=== PATIENT | female | born 1970 | race Caucasian/White ===

== ENCOUNTER 2022-03-26 20:38 | Inpatient (IN) | payer OTHER ==
[~2022-03-26] VITALS: Ht 167.6 cm; Wt 51.0 kg
--- NOTE | 2022-03-26 20:43 | NUR ---
PT [facility]. TAKEN TO BED 9
[2022-03-26 20:44] VITALS: BP 142/76
--- NOTE | 2022-03-26 20:50 | NUR ---
51 y/o female biba from home, c/o chest pain for 6 days with diarrhea, pt describes pain as pressure, 0/10 at this time. denies n&v, sob, cough, fever, chills. en route, pt was given 0.4mg nitro x2 po and 324 aspirin po. iv started 18g on left hand. pt a&ox4, ambulates with assist, indonesian speaking. gcs 15. pt states her pain increased with palpation of chest, denies any pain at this time. lungs clear bl. pt states she had one episode of diarrhea today, abd sounds x4 normoactive, flat/soft/nontender. pmh: cardiac bypass, dm2, seizure, htn, renal failure (dialysis sunday, sunday, sunday) aidan
--- NOTE | 2022-03-26 20:54 | NUR ---
Dr. Gomes examining patient.
[2022-03-26] MEDS ORDERED: LORazepam 0.5 MG TAB PO ONE (21:00)
--- NOTE | 2022-03-26 21:29 | NUR ---
X-Ray at bedside.
--- NOTE | 2022-03-26 21:29 | NUR ---
pt notified me at this time she has left upper arm dialysis port that is not functioning, but the one on her right upper arm fucntions.
[2022-03-26 21:40] LABS: BASOPHILS % (AUTO) 1.1 % (0.0-2.0); EOSINOPHILS # (AUTO) 0.1 K/uL (0-0.4); EOSINOPHILS % (AUTO) 3.2 % (0.0-4.0); HEMATOCRIT 32.4 % (36-48); HEMOGLOBIN 10.7 g/dL (12.0-16.0); LYMPHOCYTES # (AUTO) 0.7 K/uL (2.5-16.5); MEAN CORPUSCULAR HEMOGLOBIN 31 pg (27-31); MEAN CORPUSCULAR HGB CONC 33 g/dL (33-37); MEAN CORPUSCULAR VOLUME 92.1 fL (80-94); MONOCYTES # (AUTO) 0.6 K/uL (0.8-1.0); NEUTROPHILS % (AUTO) 65.7 % (42.2-75.2); PLATELET COUNT (AUTO) 138 K/uL (140-450); RED BLOOD CELL COUNT(AUTO) 3.52 MIL/uL (4.20-5.40); RED CELL DISTRIBUTION WIDTH 13.6 % (11.6-13.7); WHITE BLOOD COUNT (AUTO) 4.6 K/uL (4.8-10.8)
[2022-03-26 21:57] LABS: ALBUMIN 3.7 g/dL (3.4-5.0); ANION GAP 17.4 (8-16); CARBON DIOXIDE 27.3 mmol/L (21-32); POTASSIUM 4.7 mmol/L (3.5-5.1); TOTAL BILIRUBIN 0.4 mg/dL (0.0-1.0)
--- NOTE | 2022-03-26 22:21 | NUR ---
casi swabbed at this time
[2022-03-26] MEDS ORDERED: MORPHINE SULFATE 2 MG/ML SYR IVP STA (22:29)
[2022-03-26] MEDS ORDERED: ATOR10TA PO (22:44)
[2022-03-26] MEDS ORDERED: INSU100S10 SC (22:44)
[2022-03-26] MEDS ORDERED: ISOS20TA13 PO (22:44)
[2022-03-26] MEDS ORDERED: CLON0.2T16 PO (22:44)
[2022-03-26] MEDS ORDERED: PARO-42 PO (22:44)
[2022-03-26] MEDS ORDERED: OFLO5SOL27 OT (22:44)
[2022-03-26] MEDS ORDERED: TRAZ-343 PO (22:44)
[2022-03-26] MEDS ORDERED: HYDR-3233 PO (22:44)
[2022-03-26] MEDS ORDERED: CARV25TA PO (22:44)
[2022-03-26] MEDS ORDERED: LEVE500T9 PO (22:44)
[2022-03-26] MEDS ORDERED: SEN30 PO (22:44)
[2022-03-26] MEDS ORDERED: AMLO10TA PO (22:44)
[2022-03-26] MEDS ORDERED: HUMSLIDE (22:44)
--- NOTE | 2022-03-26 22:59 | NUR ---
Patient will be admitted to care of imer izaguirre. Admitted to telemetry. Will go to room 117. Belongings list completed. Report to harmeet roman.
[2022-03-26] MEDS ORDERED: guaiFENesin DM 200/20 MG-10 ML 10 ML UDC PO PRN (23:20)
[2022-03-26] MEDS ORDERED: ZOLPIDEM 5 MG TAB PO PRN (23:20)
[2022-03-26] MEDS ORDERED: ACETAMINOPHEN 325 MG TAB PO PRN (23:20)
[2022-03-26] MEDS ORDERED: HYDROcodone/APAP 7.5/325 MG 1 TAB PO PRN (23:20)
[2022-03-26] MEDS ORDERED: DOCUSATE SODIUM 100 MG GELCAP PO PRN (23:20)
[2022-03-26] MEDS ORDERED: MORPHINE SULFATE 2 MG/ML SYR IVP PRN (23:20)
[2022-03-26] MEDS ORDERED: ONDANSETRON 4 MG/2 ML VIAL IM/IVP PRN (23:20)
[2022-03-26] MEDS ORDERED: POTASSIUM CHLORIDE 10 MEQ TABER PO PRN (23:20)
--- NOTE | 2022-03-26 23:20 | NUR ---
PT IS ADMITTED TO [facility] FROM ER THRU [facility] WITH DIAGNOSIS OF CHEST PAIN AND INCREASE TROPONIN LEVEL. PT IS AMBULATORY WITH 1 ASSIST, AOX4, CAN VERBALIZE NEEDS AND ABLE FOLLOW COMMANDS. PT IS ON ROOM AIR AND ON CARDIAC DIET. PT SALINE LOCK ON LEFT HAND GAUGE 18 PT SKIN IS INTACT. ALL SAFETY MEASURES IMPLEMENTED. BED WHEELS ON LOCKED, BED IN LOW POSITION AND CALL LIGHT WITHIN REACH.
[2022-03-26] MEDS ORDERED: hePARIN / DEXT 5% PREMIX 250 ML IV SCH (23:25)
[2022-03-26] MEDS ORDERED: NITROGLYCERIN 0.4 MG TAB SL PRN (23:25)
[2022-03-26] MEDS ORDERED: HEPARIN PER PHARMACY MC PRN (23:25)
[2022-03-26] MEDS ORDERED: DEXTROSE 50% 50 ML SYR IVP PRN (23:30)
[2022-03-26 23:52] LABS: PROTHROMBIN TIME 11.2 secs (10.8-13.4)
--- NOTE | 2022-03-27 00:37 | NUR ---
PT WAS GIVEN SLEEPING MEDICATION PER MD ORDER AND PER PT REQUEST. PT TOLERATED IT WELL. ALL SAFETY MEASURES IMPLEMENTED. BED WHEELS ON LOCKED, BED IN LOW POSITION AND CALL LIGHT WITHIN REACH.
--- NOTE | 2022-03-27 00:41 | NUR ---
NOTIFIED DR. BLOOM REGARDING PT TROPONIN LEVEL OF 122. WAITING FOR DOCTOR'S REPLY.
[2022-03-27 00:44] LABS: CHOL/HDL RATIO 1.5 (1-4.5); FREE T4 (FREE THYROXINE) 0.75 ng/dL (0.76-1.46); MAGNESIUM 2.5 mg/dL (1.8-2.4); PHOSPHORUS 4.4 mg/dL (2.5-4.9); THYROID STIMULATING HORMONE 1.21 uIU/mL (0.34-3.74)
--- NOTE | 2022-03-27 00:45 | NUR ---
VITAL SIGNS TAKEN. VITAL SIGNS STABLE. HAD TO CALL LAB SINCE THEY DID NOT DRAW BLOOD FOR PTT. LAB SAID SHES BEEN BUSY IN ER AND THERE IS ONLY ONE OF HER TONIGHT. SHE WILL COME DRAW BLOOD FOR THE PT NOW. Addendum: 03/28/22 at 0019 by Alex Edward RN WRONG TIME FOR 2344
--- NOTE | 2022-03-27 02:00 | NUR ---
PT WAS GIVEN SANDWICH AND JELLO PER PT REQUEST. ALL SAFETY MEASURES IMPLEMENTED. BED IN LOW POSITION, BED WHEELS ON LOCKED AND CALL LIGHT WITHIN REACH.
--- NOTE | 2022-03-27 03:04 | NUR ---
DR. BLOOM REPLIED AND ASKED TO START HEPARIN. ORDER WAS MADE AND CARRIED OUT.
--- NOTE | 2022-03-27 03:19 | NUR ---
HEPARIN DRIP WAS GIVEN TO PT RUNNING AT 6ML/HR. PT TOLERATED IT WELL. ALL SAFETY MEASURES IMPLEMENTED. BED WHEELS ON LOCKED, BED IN LOW POSITION AND CALL LIGHT WITHIN REACH.
[2022-03-27] MEDS: hePARIN / DEXT 5% PREMIX 250 ML IV SCH ×2 (03:20→11:15)
[2022-03-27 04:00] VITALS: BP 147/56
--- NOTE | 2022-03-27 04:00 | NUR ---
PT WAS GIVEN HOT TOWEL COMPRESS FOR LEFT SHOULDER PAIN PER PT REQUESTED. ALL SAFETY MEASURES IMPLEMENTED. BED IN LOW POSITION, BED WHEELS ON LOCKED AND CALL LIGHT WITHIN REACH. Addendum: 03/27/22 at 0535 by Vero Villatoro RN WRONG PT.
[2022-03-27] MEDS: INSULIN LISPRO SLIDING SCALE 100 UNITS/ML VIAL SUBQ PRN ×3 (06:32→21:09)
[2022-03-27] MEDS: BLOOD GLUCOSE MONITORING 1 DEV DEV FS SCH ×4 (06:36→21:11)
--- NOTE | 2022-03-27 06:36 | NUR ---
PT BLOOD GLUCOSE IS 175. HUMALOG INSULIN 2 UNITS WAS GIVEN AT LEFT SIDE ABD. ALL SAFETY MEASURES IMPLEMENTED. BED IN LOW POSITION, BED WHEELS ON LOCKED AND CALL LIGHT WITHIN REACH.
[2022-03-27 06:59] LABS: BASOPHILS # (AUTO) 0.1 K/uL (0.00-0.22); BASOPHILS % (AUTO) 0.9 % (0.0-2.0); EOSINOPHILS # (AUTO) 0.2 K/uL (0-0.4); EOSINOPHILS % (AUTO) 3.1 % (0.0-4.0); HEMATOCRIT 34.4 % (36-48); HEMOGLOBIN 11.3 g/dL (12.0-16.0); LYMPHOCYTES % (AUTO) 18.1 % (20.5-51.1); MEAN CORPUSCULAR HEMOGLOBIN 31 pg (27-31); MEAN CORPUSCULAR HGB CONC 33 g/dL (33-37); MEAN CORPUSCULAR VOLUME 92.7 fL (80-94); MONOCYTES # (AUTO) 0.5 K/uL (0.8-1.0); MONOCYTES % (AUTO) 9.5 % (1.7-9.3); NEUTROPHILS # (AUTO) 3.9 K/uL (1.8-7.7); NEUTROPHILS % (AUTO) 68.4 % (42.2-75.2); PLATELET COUNT (AUTO) 143 K/uL (140-450); RED BLOOD CELL COUNT(AUTO) 3.71 MIL/uL (4.20-5.40); RED CELL DISTRIBUTION WIDTH 13.8 % (11.6-13.7); WHITE BLOOD COUNT (AUTO) 5.6 K/uL (4.8-10.8)
[2022-03-27 07:06] LABS: ANION GAP 18.1 (8-16); CARBON DIOXIDE 26.8 mmol/L (21-32); POTASSIUM 4.9 mmol/L (3.5-5.1)
[2022-03-27 07:13] LABS: CREATININE 9.5 mg/dL (0.6-1.3)
--- NOTE | 2022-03-27 07:24 | NUR ---
PT IS STABLE. ENDORSED PT TO MORNING SHIFT NURSE FOR CONTINUITY OF CARE.
--- NOTE | 2022-03-27 07:26 | NUR ---
RECEIVED BEDSIDE REPORT FROM ATHLETE MARKETING AGENT NURSE, PT RESTING, NO DISTRESS NOTED, IV TO LFA 20G PATENT INTACT SL. PT ON ROOM AIR, NO SOB NOTED, AV SHUNT TO LEFT UPPER ARM NOT BEING USED, AND RIGHT UPPER ARM WITH BRUIT AND THRILL. INITIAL ASSESSMENT DONE, ALL SAFETY PRECAUTION MET, CALL LIGHT WITHIN REACH, WILL CONTINUE TO MONITOR.
--- NOTE | 2022-03-27 07:50 | NUR ---
PAGED DR BONNER FOR CRITICAL RESULT, AWAITING FOR CALL BACK.
--- NOTE | 2022-03-27 07:53 | NUR ---
SPOKE TO DR BONNER REGARDING CRITICAL BUN 86 CREAT 9.5, STATED UNDERSTANDING TO SEE PT.
[2022-03-27 08:00] VITALS: BP 157/58
--- NOTE | 2022-03-27 08:33 | NUR ---
PATIENT HAS BEEN SCREENED AND CATEGORIZED HIGH NUTRITION RISK. PATIENT WILL BE SEEN WITHIN 1-2 DAYS OF ADMISSION. 03/27/22-03/28/[address]
[2022-03-27] MEDS: ISOSORBIDE DINITRATE 20 MG TAB PO SCH ×2 (09:00→21:01)
[2022-03-27] MEDS: hydrALAZINE 10 MG TAB PO SCH ×3 (09:00→17:38)
[2022-03-27] MEDS ORDERED: NON-FORMULARY ITEM (Levetiracetam* (Keppra Xr*) 1 TAB) PO SCH (09:00)
[2022-03-27] MEDS: carvediloL 12.5 MG TAB PO SCH ×2 (09:00→21:01)
--- NOTE | 2022-03-27 09:00 | NUR ---
PT BP 157/58, DUE MEDICATION GIVEN, BP MEDICATIONS HYDRALAZINE, CARVEDILOL AND ISOSORBIDE HELD DUE TO PT IS GOING TO HAVE DIALYSIS. WILL CONTINUE TO MONITOR.
[2022-03-27] MEDS ORDERED: CRUSHER, PILL MC ONE (09:16)
[2022-03-27] MEDS: PANTOPRAZOLE 40 MG TABEC PO SCH (09:23)
[2022-03-27] MEDS: amLODIPine 5 MG TAB PO SCH (09:24)
[2022-03-27] MEDS: ATORVASTATIN 20 MG TAB PO SCH (09:25)
[2022-03-27] MEDS: ECOTRIN 81 MG TABEC PO SCH (09:25)
[2022-03-27] MEDS: PARoxetine 20 MG TAB PO SCH (09:25)
[2022-03-27] MEDS: CINACALCET 30 MG TAB PO SCH (09:25)
--- NOTE | 2022-03-27 11:15 | NUR ---
PTT 36.5, PER RX PROTOCOL TO INCREASE BY 100 UNITS/HR, TO 700 UNITS/HR, AND BOLUS HEPARIN 1500 UNITS. WILL CONTINUE WITH PROCOL. PTT WILL BE ORDERED FOR 171. Addendum: 03/27/22 at 1208 by Sandy Jimenez RN [id number]
[2022-03-27 11:56] VITALS: BP 168/53
--- NOTE | 2022-03-27 11:56 | NUR ---
PT BP 168/53, HYDRALAZINE DUE 1300GIVEN, WILL CONTINUE TO MONITOR.
--- NOTE | 2022-03-27 13:13 | NUR ---
PT AMBULATED WITH PT, TOLERATED WELL. WILL CONTINUE TO MONITOR.
--- NOTE | 2022-03-27 14:00 | NUR ---
RECHECKED BP 131/63. PT STABLE, NO DISTRESS NOTED, WILL CONTINUE TO MONITOR.
--- NOTE | 2022-03-27 15:00 | NUR ---
DIALYSIS STARTED, DIALYSIS NURSE AT BEDSIDE
[2022-03-27 16:00] VITALS: BP 135/51
[2022-03-27] MEDS ORDERED: traZODone 50 MG TAB PO SCH ×2 (17:00→21:00)
--- NOTE | 2022-03-27 17:11 | NUR ---
PT C/O CHEST PAIN, DIALYSIS STILL ON GOING AT THIS MOMENT, PER DIALYSIS NURSE HE WILL STOP DIALYSIS NOW, 2.1L OUTPUT, DR BONNER NOTIFIED. PT SBP 144/45, HR 68, CHEST PAIN 10/10, NITRO PRN GIVEN, MORPHINE PRN GIVEN, ADMINISTER 2LPM O2 VIA NC. WILL CONTINUE TO MONITOR.
--- NOTE | 2022-03-27 18:10 | NUR ---
SPOKE TO DR YANG WHO IS AT BEDSIDE REGARDING PT EPISODE OF CHEST PAIN, STATED UNDERSTANDING.
--- NOTE | 2022-03-27 18:31 | NUR ---
RECEIVED PHONE CALL FROM LAB, PTT 62.3, NO CHANGE PER PROTOCOL. WILL RECHECK PTT @ [phone].
--- NOTE | 2022-03-27 19:34 | NUR ---
ENDORSED PT TO FRIT MIXER AND BURNER NURSE FOR CONTINUOUS OF CARE. PT STABLE.
--- NOTE | 2022-03-27 19:40 | NUR ---
RECEIVED BEDSIDE REPORT FROM DAY SHIFT RN FOR CONTINUITY OF CARE. PT IS AWAKE. PT IS AAOX4 ON 2L NC. PT HAS LEFT HAND 18 GAUGE AND LEFT FOREARM 22 GAUGE. PT IS ON HEPARIN DRIP 700 UNITS/HR. PT HAS LEFT AV FISTULA NOT WORKING AND RIGHT AV FISTULA FOR HD. PLAN OF CARE DISCUSSED. WILL CONTINUE TO MONITOR THE PT.
[2022-03-27 20:00] VITALS: BP 159/74
--- NOTE | 2022-03-27 21:15 | NUR ---
SCHEDULE MEDS GIVEN. NO ADVERSE REACTION NOTED. WILL CONTINUE TO MONITOR THE PT.
--- NOTE | 2022-03-27 21:56 | NUR ---
PT COMPLAIN OF BODY ITCHINESS. MESSAGED DR. BLOOM AND HE ORDERED BENADRYL 25MG Q6H. GAVE TO PT. NO OTHER COMPLAINS. WILL CONTINUE TO MONITOR THE PT.
--- NOTE | 2022-03-27 23:45 | NUR ---
VITAL SIGNS TAKEN. VITAL SIGNS STABLE. HAD TO CALL LAB SINCE THEY DID NOT DRAW BLOOD FOR PTT. LAB SAID SHES BEEN BUSY IN ER AND THERE IS ONLY ONE OF HER TONIGHT. SHE WILL COME DRAW BLOOD FOR THE PT NOW.
[2022-03-28] VITALS (8 sets, daily range): BP systolic 118–157; BP diastolic 38–72
--- NOTE | 2022-03-28 | NUR ---
BP 109/58 , HR 58 - WILL INFORM BOBBA - I HOLD BP MECS , AND BETA ALYSSA MED .
--- NOTE | 2022-03-28 00:35 | NUR ---
LAB CALLED WITH PT PTT RESULTS OF 63. NO CHANGE FOR HEPARIN DRIP PER PHARMACY PROTOCOL. THIS IS 2ND THERAPEUTIC RESULT AND NEXT PTT DRAW WILL BE IN 24 HOURS AT 03/29 0030.
--- NOTE | 2022-03-28 04:00 | NUR ---
VITAL SIGNS TAKEN. VITAL SIGNS ARE STABLE. PT DENIES ANY PAIN AND HAS NO COMPLAIN. WILL CONTINUE TO MONITOR THE PT.
[2022-03-28] MEDS: INSULIN LISPRO SLIDING SCALE 100 UNITS/ML VIAL SUBQ PRN ×2 (06:32→17:19)
[2022-03-28] MEDS: BLOOD GLUCOSE MONITORING 1 DEV DEV FS SCH ×3 (06:33→16:32)
--- NOTE | 2022-03-28 07:35 | NUR ---
ENDORSED PT TO DAY SHIFT RN FOR CONTINUITY OF CARE. PT IS STABLE.
--- NOTE | 2022-03-28 08:40 | NUR ---
VOMITING - WILL MEDICATE.
[2022-03-28] MEDS: CINACALCET 30 MG TAB PO SCH (09:00)
--- NOTE | 2022-03-28 09:24 | NUR ---
DC PLANNING: PATIENT HAS AN ORDER TO TRANSFER TO HIGHER LEVEL OF CARE, FAXED THE REQUEST TO [place] . CM TO FOLLOW Addendum: 03/28/22 at 1231 by Brook Guerrero RN DC PLANNING: RECEIVED A CALL FROM [place] SPOKE WITH MARLEN ANGEL RECEIVED THE ORDER FOR TRANSFER TO HIGHER LEVEL OF CARE AND REQUESTING THE MD'S NUMBER FOR PEER TO PEER DISCUSSION. PROVIDE DR ROMERO TELECOMMUNICATIONS CONSULTANT'S NUMBER. NOTIFIED PT'S REGARDING POSSIBLE TRANSFER TO [facility] FOR CARDIAC CATH. PATIENT VERBALIZED UNDERSTANDING. CM TO FOLLOW
--- NOTE | 2022-03-28 09:50 | NUR ---
PER PHARMACIST - VERIFY THE DOSAGE OF THE SENSIPAR
--- NOTE | 2022-03-28 10:30 | NUR ---
bp 90/58 - no complain made
[2022-03-28] MEDS: carvediloL 12.5 MG TAB PO SCH (11:00)
[2022-03-28] MEDS: ISOSORBIDE DINITRATE 20 MG TAB PO SCH (11:00)
[2022-03-28] MEDS: amLODIPine 5 MG TAB PO SCH (11:00)
[2022-03-28] MEDS: hydrALAZINE 10 MG TAB PO SCH ×3 (11:00→17:12)
[2022-03-28] MEDS: ECOTRIN 81 MG TABEC PO SCH (11:00)
[2022-03-28] MEDS: ATORVASTATIN 20 MG TAB PO SCH (11:10)
[2022-03-28] MEDS: PANTOPRAZOLE 40 MG TABEC PO SCH (11:10)
[2022-03-28] MEDS: PARoxetine 20 MG TAB PO SCH (11:10)
--- NOTE | 2022-03-28 11:46 | NUR ---
JHAON GALLO - HYDRAULIC AND PLUMBING INSTALLER - [phone] Addendum: 03/28/22 at 1441 by Larissa Celeste RN HYDRAULIC AND PLUMBING INSTALLER GOT THE REPORT
--- NOTE | 2022-03-28 13:00 | NUR ---
bp re check - 105/60 Addendum: 03/28/22 at 2008 by Larissa Celeste RN the above nurse's note is an error entry - [email or web address]
--- NOTE | 2022-03-28 14:30 | NUR ---
KELSEY - CALL ME , PER MARLEN - I WILL RECIEVE THE CALL FOR MANAGER OF SALES TIME .
[2022-03-28] MEDS: hePARIN / DEXT 5% PREMIX 250 ML IV SCH (14:40)
--- NOTE | 2022-03-28 14:48 | NUR ---
03/28/22 RD INITIAL ASSESSMENT COMPLETED PLEASE REFER TO NUTRITION ASSESSMENT UNDER CARE ACTIVITY FOR ESTIMATED NUTRITIONAL NEEDS. 1. CONTINUE CARDIAC DIET TOLERATED. 2. RD WILL CONTINUE TO MONITOR NUTRITION RELATED LAB VALUES. 3. RD TO FOLLOW-UP 3-5 DAYS, MODERATE RISK REVIEWED BY AKILAH ROSADO RD
--- NOTE | 2022-03-28 15:47 | NUR ---
INFORM DR. BLOOM PT IS FOR TRANSFER TO [facility] TODAY .
--- NOTE | 2022-03-28 19:20 | NUR ---
RECEIVED REPORT FROM DAY SHIFT NURSE. PATIENT IN BED RESTING COMFORTABLY ON ROOM AIR. NO S/S OF RESPIRATORY DISTRESS. BREATHING REGULAR NON LABORED. ON HEPARIN DRIP INFUSING 700 UNITS/HR. PATIENT WITH LEFT AND RIGHT UPPER ARM FISTULA. RIGHT UPPER ARM FISTULA DIALYSIS ACCESS, DIALYSIS DAYS --. SAFETY MEASURES ARE IN PLACE. CALL LIGHT WITHIN REACH. PT IS FOR TRANSFER TO [facility] FOR HIGHER LEVEL OF CARE.
--- NOTE | 2022-03-28 19:35 | NUR ---
ENDORSED - PT -STABLE
--- NOTE | 2022-03-28 21:35 | NUR ---
RECEIVED A CALL FROM KIZZY FROM [facility]. HE ASKED FOR THE FAXED NUMBER HERE. HE ALSO SAID THAT HE WILL CALL BACK TO GIVE THE P/U TIME.
--- NOTE | 2022-03-28 21:45 | NUR ---
REPORT GIVEN TO [facility] AT [facility]. ANSWERED QUESTIONS ASKED. INSTRUMENTATION CHEMIST TIME [id number]
--- NOTE | 2022-03-28 22:55 | NUR ---
TRANSFERRED PATIENT TO [facility] EXAMINATION SUPERVISOR BY [facility] TRANSPORTATION. (JAE) IN STABLE CONDITION. WITH HEPARIN DRIP ONGOING ORDERED BY DR. BLOOM.
== END 2022-03-28 22:55 | disposition short-term general hospital (02) | DRG 280 ==
LOC: MED 20:38 → MTU 22:41
PROVIDERS: ADMIT Student in an Organized Health Care Education/Training Program; ATTEND Student in an Organized Health Care Education/Training Program
PROC: 5A1D70Z Performance of Urinary Filtration, Intermittent, Less than 6 Hours Per Day (ICD-10-PCS; principal; 2022-03-27)
PROC: 5A1D70Z Performance of Urinary Filtration, Intermittent, Less than 6 Hours Per Day (ICD-10-PCS; 2022-03-28)
DX: I21.4 Non-ST elevation (NSTEMI) myocardial infarction (principal); I50.33 Acute on chronic diastolic (congestive) heart failure; N18.6 End stage renal disease; I13.2 Hypertensive heart and chronic kidney disease with heart failure and with stage 5 chronic kidney disease, or end stage renal disease; G40.909 Epilepsy, unspecified, not intractable, without status epilepticus; E78.5 Hyperlipidemia, unspecified; E83.41 Hypermagnesemia; D63.8 Anemia in other chronic diseases classified elsewhere; E11.22 Type 2 diabetes mellitus with diabetic chronic kidney disease; Z20.822 Contact with and (suspected) exposure to COVID-19; Z95.1 Presence of aortocoronary bypass graft; Z99.2 Dependence on renal dialysis; Z79.4 Long term (current) use of insulin; Z79.899 Other long term (current) drug therapy
CPT/HCPCS: 36415; 71045; 80048; 80053; 82150; 82948; 83036; 83690; 83735; 83880; 84100; 84439; 84443; 84484; 85025; 85610; 85730; 87081; 93005; 96374; 97116; 97163-GP; 99285; J1644; J2270; J2405; Q0163

== ENCOUNTER 2023-06-07 20:57 | Emergency (ER) | payer OTHER, MEDICAID ==
[~2023-06-07] VITALS: Ht 167.6 cm; Wt 49.9 kg
[2023-06-07 20:57] VITALS: BP 156/56; PULSE 67; RESP 22; TEMP 97.6; O2SAT 93
[~2023-06-07 20:57] MED LIST: AMLO10TA PO; ATOR10TA PO; CARV25TA PO; CLON0.2T16 PO; HUMSLIDE; HYDR-3233 PO; INSU100S10 SC; ISOS20TA13 PO; PARO-42 PO; SEN30 PO; TRAZ-343 PO
[2023-06-07 21:38] VITALS: O2SAT 95
[2023-06-07] MEDS ORDERED: NACL 0.9% 1,000 ML IV ONE (22:10)
[2023-06-07 23:05] LABS: BASOPHILS % (AUTO) 0.7 % (0.0-2.0); EOSINOPHILS # (AUTO) 0.1 K/uL (0-0.4); HEMATOCRIT 28.1 % (36-48); HEMOGLOBIN 9.1 g/dL (12.0-16.0); LYMPHOCYTES # (AUTO) 0.5 K/uL (2.5-16.5); LYMPHOCYTES % (AUTO) 8.8 % (20.5-51.1); MEAN CORPUSCULAR HEMOGLOBIN 30 pg (27-31); MEAN CORPUSCULAR HGB CONC 33 g/dL (33-37); MEAN CORPUSCULAR VOLUME 93.3 fL (80-94); MONOCYTES # (AUTO) 0.3 K/uL (0.8-1.0); MONOCYTES % (AUTO) 5.7 % (1.7-9.3); NEUTROPHILS # (AUTO) 4.9 K/uL (1.8-7.7); NEUTROPHILS % (AUTO) 82.8 % (42.2-75.2); PLATELET COUNT (AUTO) 106 K/uL (140-450); RED BLOOD CELL COUNT(AUTO) 3.01 MIL/uL (4.20-5.40); RED CELL DISTRIBUTION WIDTH 13.8 % (11.6-13.7); WHITE BLOOD COUNT (AUTO) 5.9 K/uL (4.8-10.8)
[2023-06-07 23:16] LABS: ANION GAP 11.9 (8-16); CALCIUM 7.1 mg/dL (8.5-10.1); CARBON DIOXIDE 30.1 mmol/L (21-32); TOTAL BILIRUBIN 0.3 mg/dL (0.0-1.0); TOTAL PROTEIN, SERUM 6.7 g/dL (6.4-8.2)
[2023-06-07 23:20] LABS: CREATININE 5.5 mg/dL (0.6-1.3)
[2023-06-08 00:18] VITALS: O2SAT 93
[2023-06-08] MEDS ORDERED: cefTRIAXone 1,000 MG in DEXT 5% MINI-BAG PLUS 50 ML IV ONE (01:00)
[2023-06-08] MEDS ORDERED: MORPHINE SULFATE 4 MG/ML SYR IVP ONE ×2 (01:15→03:55)
[2023-06-08] MEDS ORDERED: cefTRIAXone 1,000 MG VIAL ONE (01:19)
[2023-06-08 01:35] LABS: LACTIC ACID 0.9 mmol/L (0.4-2.0)
[2023-06-08] MEDS ORDERED: INSULIN REGULAR, HUMAN 100 UNIT/ML VIAL IVP ONE (03:10)
[2023-06-08 03:49] VITALS: O2SAT 97
[2023-06-08 05:50] VITALS: BP 127/39; PULSE 68; RESP 36; O2SAT 92
== END 2023-06-08 05:38 | disposition short-term general hospital (02) ==
LOC: MED 20:57
DX: R51.9 Headache, unspecified (principal); R40.1 Stupor; J18.9 Pneumonia, unspecified organism; M54.2 Cervicalgia; R07.9 Chest pain, unspecified; R11.2 Nausea with vomiting, unspecified; I10 Essential (primary) hypertension; Z87.448 Personal history of other diseases of urinary system; Z95.1 Presence of aortocoronary bypass graft; Z86.69 Personal history of other diseases of the nervous system and sense organs; Z79.4 Long term (current) use of insulin; Z79.899 Other long term (current) drug therapy
CPT/HCPCS: 36415; 70450; 71045; 80053; 82803; 83605; 83880; 84484; 85025; 87040; 93005; 96365; 96375; 96376; 99285; J0696; J1815; J2270; J7030; Q0092

== ENCOUNTER 2023-06-21 22:00 | Inpatient (IN) | payer OTHER, MEDICAID ==
[~2023-06-21] VITALS: Ht 167.6 cm; Wt 47.6 kg
[2023-06-21 22:00] VITALS: BP 204/104; PULSE 75; RESP 16; TEMP 98.2; O2SAT 100
[2023-06-21] MEDS ORDERED: MORPHINE SULFATE 4 MG/ML SYR IVP ONE (22:15)
[2023-06-21] MEDS ORDERED: NITROGLYCERIN 0.4 MG TAB SL ONE (22:15)
[2023-06-21] MEDS ORDERED: ONDANSETRON 4 MG/2 ML VIAL IVP ONE (22:15)
[2023-06-21 22:22] VITALS: O2SAT 98
[2023-06-21 22:48] LABS: BASOPHILS # (AUTO) 0.1 K/uL (0.00-0.22); BASOPHILS % (AUTO) 0.9 % (0.0-2.0); EOSINOPHILS # (AUTO) 0.2 K/uL (0-0.4); EOSINOPHILS % (AUTO) 3.1 % (0.0-4.0); HEMATOCRIT 29.9 % (36-48); HEMOGLOBIN 9.6 g/dL (12.0-16.0); LYMPHOCYTES # (AUTO) 0.7 K/uL (2.5-16.5); LYMPHOCYTES % (AUTO) 12.5 % (20.5-51.1); MEAN CORPUSCULAR HEMOGLOBIN 31 pg (27-31); MEAN CORPUSCULAR HGB CONC 32 g/dL (33-37); MEAN CORPUSCULAR VOLUME 96.1 fL (80-94); MONOCYTES # (AUTO) 0.4 K/uL (0.8-1.0); MONOCYTES % (AUTO) 7.9 % (1.7-9.3); NEUTROPHILS # (AUTO) 4.2 K/uL (1.8-7.7); NEUTROPHILS % (AUTO) 75.6 % (42.2-75.2); PLATELET COUNT (AUTO) 166 K/uL (140-450); RED BLOOD CELL COUNT(AUTO) 3.11 MIL/uL (4.20-5.40); RED CELL DISTRIBUTION WIDTH 15.4 % (11.6-13.7); WHITE BLOOD COUNT (AUTO) 5.6 K/uL (4.8-10.8)
[2023-06-21 23:11] LABS: ACETONE, SERUM Negative (NEGATIVE)
[2023-06-21 23:13] LABS: INR 1.11 (0.8-1.2); PARTIAL THROMBOPLASTIN TIME 27.9 secs (22-35.6); PROTHROMBIN TIME 11.6 secs (10.8-13.4)
[2023-06-21 23:15] LABS: ALBUMIN 3.3 g/dL (3.4-5.0); ANION GAP 16.2 (8-16); CALCIUM 7.7 mg/dL (8.5-10.1); CARBON DIOXIDE 30.8 mmol/L (21-32); TOTAL BILIRUBIN 0.3 mg/dL (0.0-1.0); TOTAL PROTEIN, SERUM 7.4 g/dL (6.4-8.2)
[2023-06-21 23:18] LABS: CREATININE 6.8 mg/dL (0.6-1.3)
[2023-06-21 23:20] LABS: CREATINE KINASE, TOTAL 26 U/L (26-192); MAGNESIUM 2.1 mg/dL (1.8-2.4)
[2023-06-21] MEDS ORDERED: LABETALOL 20 MG/4 ML VIAL IVP ONE (23:25)
[2023-06-21] MEDS ORDERED: INSULIN REGULAR, HUMAN 100 UNIT/ML VIAL IV ONE (23:25)
[2023-06-21] MEDS ORDERED: INSULIN REGULAR, HUMAN 100 UNIT in NACL 0.9% 100 ML IV ONE ×2 (23:30)
[2023-06-21 23:42] LABS: LACTIC ACID 1.7 mmol/L (0.4-2.0)
[2023-06-22] VITALS (8 sets, daily range): BP systolic 166; BP diastolic 69; PULSE 67; RESP 15–18; TEMP 98.2; O2SAT 100
[2023-06-22 00:27] LABS: BLOOD GAS BASE EXCESS 0.8 mmol/L (-2.0-2.0); BLOOD GAS HCO3 27.4 mmol/L (22-26); BLOOD GAS PCO2 54.4 mmHg (35-45); BLOOD GAS PO2 57.2 mmHg (75-100)
[2023-06-22 00:28] LABS: BLOOD GAS O2 SAT% 86.4 % (92.0-98.5)
[2023-06-22] MEDS ORDERED: hydrALAZINE 20 MG/ML VIAL IVP ONE (00:30)
[2023-06-22] MEDS ORDERED: ASPIRIN 325 MG TAB PO ONE (00:30)
[2023-06-22] MEDS ORDERED: NITROGLYCERIN 50 MG/D5W PREMIX 250 ML IV ONE (01:05)
[2023-06-22] MEDS ORDERED: MORPHINE SULFATE 4 MG/ML SYR IVP ONE (01:20)
[2023-06-22] MEDS ORDERED: fentaNYL citrate 0.05 MG/ML VIAL IVP ONE (02:20)
[2023-06-22] MEDS ORDERED: ZOLPIDEM 5 MG TAB PO PRN (02:40)
[2023-06-22] MEDS ORDERED: DEXTROSE 50% 50 ML SYR IVP PRN (02:40)
[2023-06-22] MEDS ORDERED: guaiFENesin DM 200/20 MG-10 ML 10 ML UDC PO PRN (02:40)
[2023-06-22] MEDS ORDERED: DOCUSATE SODIUM 100 MG GELCAP PO PRN (02:40)
[2023-06-22] MEDS ORDERED: POTASSIUM CHLORIDE 10 MEQ TABER PO PRN (02:40)
[2023-06-22 06:28] LABS: BASOPHILS # (AUTO) 0.1 K/uL (0.00-0.22); BASOPHILS % (AUTO) 1.1 % (0.0-2.0); EOSINOPHILS # (AUTO) 0.3 K/uL (0-0.4); EOSINOPHILS % (AUTO) 4.5 % (0.0-4.0); HEMATOCRIT 29.3 % (36-48); HEMOGLOBIN 9.5 g/dL (12.0-16.0); LYMPHOCYTES # (AUTO) 1.3 K/uL (2.5-16.5); LYMPHOCYTES % (AUTO) 21.8 % (20.5-51.1); MEAN CORPUSCULAR HEMOGLOBIN 31 pg (27-31); MEAN CORPUSCULAR HGB CONC 32 g/dL (33-37); MEAN CORPUSCULAR VOLUME 94.7 fL (80-94); MONOCYTES # (AUTO) 0.6 K/uL (0.8-1.0); MONOCYTES % (AUTO) 9.3 % (1.7-9.3); NEUTROPHILS # (AUTO) 3.9 K/uL (1.8-7.7); NEUTROPHILS % (AUTO) 63.3 % (42.2-75.2); PLATELET COUNT (AUTO) 164 K/uL (140-450); RED BLOOD CELL COUNT(AUTO) 3.09 MIL/uL (4.20-5.40); RED CELL DISTRIBUTION WIDTH 14.7 % (11.6-13.7); WHITE BLOOD COUNT (AUTO) 6.2 K/uL (4.8-10.8)
[2023-06-22 07:08] LABS: ANION GAP 17.8 (8-16); CALCIUM 8.3 mg/dL (8.5-10.1); CARBON DIOXIDE 29.8 mmol/L (21-32); POTASSIUM 4.6 mmol/L (3.5-5.1); TOTAL BILIRUBIN 0.3 mg/dL (0.0-1.0); TOTAL PROTEIN, SERUM 6.8 g/dL (6.4-8.2)
[2023-06-22 07:11] LABS: CREATININE 6.9 mg/dL (0.6-1.3)
[2023-06-22] MEDS: HYDROcodone/APAP 7.5/325 MG 1 TAB PO PRN (07:57)
[2023-06-22] MEDS: BLOOD GLUCOSE MONITORING 1 DEV DEV FS SCH ×4 (08:02→21:00)
[2023-06-22] MEDS: PANTOPRAZOLE 40 MG TABEC PO SCH (09:05)
[2023-06-22] MEDS ORDERED: NON-FORMULARY ITEM (Clonidine HCl (Clonidine) 0.1 MG) PO SCH (13:00)
[2023-06-22] MEDS: hydrALAZINE 20 MG/ML VIAL IVP PRN (16:23)
[2023-06-22] MEDS: INSULIN LISPRO SLIDING SCALE 100 UNITS/ML VIAL SUBQ PRN ×2 (16:58→22:03)
[2023-06-22] MEDS: hydrALAZINE 25 MG TAB PO SCH (18:10)
[2023-06-22] MEDS: CLONIDINE HYDROCHLORIDE 0.1 MG TAB PO SCH (18:13)
[2023-06-22] MEDS: ISOSORBIDE DINITRATE 20 MG TAB PO SCH (22:03)
[2023-06-22] MEDS: traZODone 50 MG TAB PO SCH (22:04)
[2023-06-22] MEDS: carvediloL 12.5 MG TAB PO SCH (22:04)
[2023-06-22] MEDS: ATORVASTATIN 20 MG TAB PO SCH (22:05)
[2023-06-23] VITALS (9 sets, daily range): BP systolic 102–178; BP diastolic 58–88; PULSE 60–78; RESP 14–18; TEMP 97.8–98.9; O2SAT 95–100
[2023-06-23] MEDS: hydrALAZINE 20 MG/ML VIAL IVP PRN (05:09)
[2023-06-23] MEDS: BLOOD GLUCOSE MONITORING 1 DEV DEV FS SCH ×4 (06:45→20:26)
[2023-06-23] MEDS: INSULIN LISPRO SLIDING SCALE 100 UNITS/ML VIAL SUBQ PRN ×4 (06:49→20:30)
[2023-06-23 07:29] LABS: BASOPHILS # (AUTO) 0.1 K/uL (0.00-0.22); BASOPHILS % (AUTO) 2.1 % (0.0-2.0); EOSINOPHILS # (AUTO) 0.1 K/uL (0-0.4); EOSINOPHILS % (AUTO) 1.9 % (0.0-4.0); HEMATOCRIT 33.3 % (36-48); HEMOGLOBIN 10.8 g/dL (12.0-16.0); LYMPHOCYTES # (AUTO) 0.3 K/uL (2.5-16.5); LYMPHOCYTES % (AUTO) 5.4 % (20.5-51.1); MEAN CORPUSCULAR HEMOGLOBIN 31 pg (27-31); MEAN CORPUSCULAR HGB CONC 32 g/dL (33-37); MEAN CORPUSCULAR VOLUME 95.7 fL (80-94); MONOCYTES # (AUTO) 0.3 K/uL (0.8-1.0); MONOCYTES % (AUTO) 4.9 % (1.7-9.3); NEUTROPHILS # (AUTO) 5.6 K/uL (1.8-7.7); NEUTROPHILS % (AUTO) 85.7 % (42.2-75.2); PLATELET COUNT (AUTO) 184 K/uL (140-450); RED BLOOD CELL COUNT(AUTO) 3.48 MIL/uL (4.20-5.40); RED CELL DISTRIBUTION WIDTH 15.5 % (11.6-13.7); WHITE BLOOD COUNT (AUTO) 6.5 K/uL (4.8-10.8)
[2023-06-23 07:45] LABS: ALBUMIN 3.3 g/dL (3.4-5.0); ANION GAP 17.2 (8-16); CALCIUM 9.1 mg/dL (8.5-10.1); CREATININE 3.8 mg/dL (0.6-1.3); POTASSIUM 4.2 mmol/L (3.5-5.1); TOTAL BILIRUBIN 0.3 mg/dL (0.0-1.0); TOTAL PROTEIN, SERUM 7.6 g/dL (6.4-8.2)
[2023-06-23] MEDS: PANTOPRAZOLE 40 MG TABEC PO SCH (09:48)
[2023-06-23] MEDS: ONDANSETRON 4 MG/2 ML VIAL IM/IVP PRN (09:48)
[2023-06-23] MEDS: PARoxetine 20 MG TAB PO SCH (09:49)
[2023-06-23] MEDS: CINACALCET 30 MG TAB PO SCH (09:49)
[2023-06-23] MEDS: ISOSORBIDE DINITRATE 20 MG TAB PO SCH ×2 (09:57→20:27)
[2023-06-23] MEDS: amLODIPine 5 MG TAB PO SCH (09:57)
[2023-06-23] MEDS: carvediloL 12.5 MG TAB PO SCH ×2 (09:57→20:27)
[2023-06-23] MEDS: CLONIDINE HYDROCHLORIDE 0.1 MG TAB PO SCH ×3 (09:58→17:00)
[2023-06-23] MEDS: hydrALAZINE 25 MG TAB PO SCH ×3 (09:58→17:00)
[2023-06-23] MEDS: HYDROcodone/APAP 7.5/325 MG 1 TAB PO PRN (10:05)
[2023-06-23] MEDS: MORPHINE SULFATE 2 MG/ML SYR IVP PRN ×2 (12:31→20:34)
[2023-06-23] MEDS: ACETAMINOPHEN 325 MG TAB PO PRN (19:19)
[2023-06-23] MEDS: ATORVASTATIN 20 MG TAB PO SCH (20:26)
[2023-06-23] MEDS: traZODone 50 MG TAB PO SCH (20:26)
[2023-06-24] VITALS (11 sets, daily range): BP systolic 113–180; BP diastolic 56–100; PULSE 61–74; RESP 16–18; TEMP 96.6–98.4; O2SAT 91–99
[2023-06-24] MEDS: hydrALAZINE 20 MG/ML VIAL IVP PRN (00:29)
[2023-06-24] MEDS: BLOOD GLUCOSE MONITORING 1 DEV DEV FS SCH ×4 (06:30→21:00)
[2023-06-24] MEDS: INSULIN LISPRO SLIDING SCALE 100 UNITS/ML VIAL SUBQ PRN ×4 (06:32→20:53)
[2023-06-24 07:14] LABS: BASOPHILS # (AUTO) 0.1 K/uL (0.00-0.22); BASOPHILS % (AUTO) 1.1 % (0.0-2.0); EOSINOPHILS # (AUTO) 0.2 K/uL (0-0.4); EOSINOPHILS % (AUTO) 3.3 % (0.0-4.0); HEMOGLOBIN 10.4 g/dL (12.0-16.0); LYMPHOCYTES # (AUTO) 0.9 K/uL (2.5-16.5); LYMPHOCYTES % (AUTO) 18.1 % (20.5-51.1); MEAN CORPUSCULAR HEMOGLOBIN 31 pg (27-31); MEAN CORPUSCULAR HGB CONC 33 g/dL (33-37); MEAN CORPUSCULAR VOLUME 95.4 fL (80-94); MONOCYTES # (AUTO) 0.5 K/uL (0.8-1.0); NEUTROPHILS # (AUTO) 3.2 K/uL (1.8-7.7); NEUTROPHILS % (AUTO) 67.5 % (42.2-75.2); PLATELET COUNT (AUTO) 194 K/uL (140-450); RED BLOOD CELL COUNT(AUTO) 3.35 MIL/uL (4.20-5.40); RED CELL DISTRIBUTION WIDTH 15.2 % (11.6-13.7); WHITE BLOOD COUNT (AUTO) 4.8 K/uL (4.8-10.8)
[2023-06-24 08:11] LABS: ALBUMIN 3.1 g/dL (3.4-5.0); ANION GAP 15.4 (8-16); CALCIUM 8.2 mg/dL (8.5-10.1); CARBON DIOXIDE 30.6 mmol/L (21-32); TOTAL BILIRUBIN 0.3 mg/dL (0.0-1.0); TOTAL PROTEIN, SERUM 7.1 g/dL (6.4-8.2)
[2023-06-24 08:13] LABS: CREATININE 5.9 mg/dL (0.6-1.3)
[2023-06-24] MEDS: carvediloL 12.5 MG TAB PO SCH ×2 (08:24→20:40)
[2023-06-24] MEDS: amLODIPine 5 MG TAB PO SCH (08:24)
[2023-06-24] MEDS: hydrALAZINE 25 MG TAB PO SCH ×3 (08:28→17:43)
[2023-06-24] MEDS: CLONIDINE HYDROCHLORIDE 0.1 MG TAB PO SCH ×3 (08:28→17:43)
[2023-06-24] MEDS: ISOSORBIDE DINITRATE 20 MG TAB PO SCH ×2 (08:29→20:40)
[2023-06-24] MEDS: CINACALCET 30 MG TAB PO SCH (08:29)
[2023-06-24] MEDS: PANTOPRAZOLE 40 MG TABEC PO SCH (08:29)
[2023-06-24] MEDS: PARoxetine 20 MG TAB PO SCH (08:29)
[2023-06-24] MEDS: NIFEdipine 30 MG TABER PO SCH (10:57)
[2023-06-24] MEDS: ACETAMINOPHEN 325 MG TAB PO PRN (13:59)
[2023-06-24] MEDS: HYDROcodone/APAP 7.5/325 MG 1 TAB PO PRN (17:44)
[2023-06-24] MEDS: ATORVASTATIN 20 MG TAB PO SCH (20:38)
[2023-06-24] MEDS: traZODone 50 MG TAB PO SCH (20:39)
[2023-06-24] MEDS: MORPHINE SULFATE 2 MG/ML SYR IVP PRN (20:55)
[2023-06-25] MEDS: ONDANSETRON 4 MG/2 ML VIAL IM/IVP PRN (06:27)
[2023-06-25] MEDS: INSULIN LISPRO SLIDING SCALE 100 UNITS/ML VIAL SUBQ PRN ×4 (06:29→21:25)
[2023-06-25] MEDS: BLOOD GLUCOSE MONITORING 1 DEV DEV FS SCH ×4 (06:32→21:08)
[2023-06-25 06:33] LABS: BASOPHILS # (AUTO) 0.1 K/uL (0.00-0.22); BASOPHILS % (AUTO) 1.3 % (0.0-2.0); EOSINOPHILS # (AUTO) 0.2 K/uL (0-0.4); EOSINOPHILS % (AUTO) 4.5 % (0.0-4.0); HEMOGLOBIN 9.9 g/dL (12.0-16.0); LYMPHOCYTES # (AUTO) 0.8 K/uL (2.5-16.5); LYMPHOCYTES % (AUTO) 20.6 % (20.5-51.1); MEAN CORPUSCULAR HEMOGLOBIN 31 pg (27-31); MEAN CORPUSCULAR HGB CONC 32 g/dL (33-37); MEAN CORPUSCULAR VOLUME 95.4 fL (80-94); MONOCYTES # (AUTO) 0.4 K/uL (0.8-1.0); MONOCYTES % (AUTO) 10.4 % (1.7-9.3); NEUTROPHILS # (AUTO) 2.4 K/uL (1.8-7.7); NEUTROPHILS % (AUTO) 63.2 % (42.2-75.2); PLATELET COUNT (AUTO) 170 K/uL (140-450); RED BLOOD CELL COUNT(AUTO) 3.24 MIL/uL (4.20-5.40); RED CELL DISTRIBUTION WIDTH 14.9 % (11.6-13.7); WHITE BLOOD COUNT (AUTO) 3.8 K/uL (4.8-10.8)
[2023-06-25 07:10] LABS: ALBUMIN 3.1 g/dL (3.4-5.0); ANION GAP 17.2 (8-16); CALCIUM 7.7 mg/dL (8.5-10.1); CARBON DIOXIDE 27.5 mmol/L (21-32); TOTAL BILIRUBIN 0.3 mg/dL (0.0-1.0); TOTAL PROTEIN, SERUM 6.9 g/dL (6.4-8.2)
[2023-06-25 07:13] LABS: CREATININE 7.5 mg/dL (0.6-1.3)
[2023-06-25 07:14] LABS: POTASSIUM 5.7 mmol/L (3.5-5.1)
[2023-06-25 08:00] VITALS: BP 157/64; PULSE 63; RESP 17; TEMP 98; O2SAT 94; O2SAT 97
[2023-06-25] MEDS: NIFEdipine 30 MG TABER PO SCH (09:00)
[2023-06-25] MEDS: ISOSORBIDE DINITRATE 20 MG TAB PO SCH ×2 (09:00→21:12)
[2023-06-25] MEDS: CLONIDINE HYDROCHLORIDE 0.1 MG TAB PO SCH ×4 (09:00→17:00)
[2023-06-25] MEDS: hydrALAZINE 25 MG TAB PO SCH ×4 (09:00→17:00)
[2023-06-25] MEDS: carvediloL 12.5 MG TAB PO SCH ×2 (09:00→21:09)
[2023-06-25] MEDS: PANTOPRAZOLE 40 MG TABEC PO SCH (09:14)
[2023-06-25] MEDS: PARoxetine 20 MG TAB PO SCH (09:14)
[2023-06-25] MEDS: MECLIZINE 25 MG TAB PO SCH ×3 (09:14→18:17)
[2023-06-25] MEDS: CINACALCET 30 MG TAB PO SCH (09:18)
[2023-06-25] MEDS ORDERED: MECL-231 PO (10:20)
[2023-06-25] MEDS ORDERED: ISOS20TA13 PO (10:20)
[2023-06-25] MEDS ORDERED: CARV25TA PO (10:20)
[2023-06-25] MEDS ORDERED: NIFE30TE5 PO (10:20)
[2023-06-25] MEDS ORDERED: NIFE30TA36 PO (10:20)
[2023-06-25] MEDS: HYDROcodone/APAP 7.5/325 MG 1 TAB PO PRN ×2 (13:09→21:18)
[2023-06-25] MEDS ORDERED: ALBUMIN HUMAN 25% 100 ML IV SCH (13:30)
[2023-06-25] MEDS: hydrALAZINE 20 MG/ML VIAL IVP PRN (14:48)
[2023-06-25 16:00] VITALS: BP 115/54; PULSE 75; RESP 17; TEMP 98; O2SAT 97
[2023-06-25] MEDS: ACETAMINOPHEN 325 MG TAB PO PRN (18:17)
[2023-06-25 20:00] VITALS: BP 120/59; PULSE 75; PULSE 85; RESP 20; TEMP 97.4; O2SAT 97
[2023-06-25] MEDS: traZODone 50 MG TAB PO SCH (21:10)
[2023-06-25] MEDS: ATORVASTATIN 20 MG TAB PO SCH (21:13)
[2023-06-26 04:00] VITALS: BP 184/79; PULSE 75; RESP 20; TEMP 98.4; O2SAT 96
[2023-06-26] MEDS: hydrALAZINE 20 MG/ML VIAL IVP PRN (06:06)
[2023-06-26] MEDS: BLOOD GLUCOSE MONITORING 1 DEV DEV FS SCH ×3 (06:47→16:30)
[2023-06-26] MEDS: INSULIN LISPRO SLIDING SCALE 100 UNITS/ML VIAL SUBQ PRN ×3 (06:50→16:32)
[2023-06-26 07:14] LABS: BASOPHILS # (AUTO) 0.1 K/uL (0.00-0.22); BASOPHILS % (AUTO) 1.2 % (0.0-2.0); EOSINOPHILS # (AUTO) 0.2 K/uL (0-0.4); EOSINOPHILS % (AUTO) 3.8 % (0.0-4.0); HEMATOCRIT 29.3 % (36-48); HEMOGLOBIN 9.5 g/dL (12.0-16.0); LYMPHOCYTES # (AUTO) 0.8 K/uL (2.5-16.5); LYMPHOCYTES % (AUTO) 16.2 % (20.5-51.1); MEAN CORPUSCULAR HEMOGLOBIN 31 pg (27-31); MEAN CORPUSCULAR HGB CONC 33 g/dL (33-37); MONOCYTES # (AUTO) 0.5 K/uL (0.8-1.0); MONOCYTES % (AUTO) 9.9 % (1.7-9.3); NEUTROPHILS # (AUTO) 3.3 K/uL (1.8-7.7); NEUTROPHILS % (AUTO) 68.9 % (42.2-75.2); PLATELET COUNT (AUTO) 185 K/uL (140-450); RED BLOOD CELL COUNT(AUTO) 3.08 MIL/uL (4.20-5.40); RED CELL DISTRIBUTION WIDTH 14.6 % (11.6-13.7); WHITE BLOOD COUNT (AUTO) 4.8 K/uL (4.8-10.8)
[2023-06-26 07:34] LABS: ALBUMIN 3.3 g/dL (3.4-5.0); CARBON DIOXIDE 28.4 mmol/L (21-32); POTASSIUM 5.4 mmol/L (3.5-5.1); TOTAL BILIRUBIN 0.4 mg/dL (0.0-1.0); TOTAL PROTEIN, SERUM 7.2 g/dL (6.4-8.2)
[2023-06-26 08:00] VITALS: BP 134/59; PULSE 65; RESP 18; RESP 20; TEMP 98.1; O2SAT 96
[2023-06-26] MEDS: CINACALCET 30 MG TAB PO SCH (08:38)
[2023-06-26] MEDS: CLONIDINE HYDROCHLORIDE 0.1 MG TAB PO SCH ×2 (08:38→12:36)
[2023-06-26] MEDS: carvediloL 12.5 MG TAB PO SCH (08:39)
[2023-06-26] MEDS: ISOSORBIDE DINITRATE 20 MG TAB PO SCH (08:39)
[2023-06-26] MEDS: PARoxetine 20 MG TAB PO SCH (08:40)
[2023-06-26] MEDS: hydrALAZINE 25 MG TAB PO SCH ×2 (08:40→12:35)
[2023-06-26] MEDS: MECLIZINE 25 MG TAB PO SCH ×2 (08:40→12:35)
[2023-06-26] MEDS ORDERED: NIFEdipine 60 MG TABER PO SCH (09:00)
[2023-06-26] MEDS: PANTOPRAZOLE 40 MG TABEC PO SCH (09:29)
[2023-06-26] MEDS ORDERED: SODIUM ZIRCONIUM CYCLOSILICATE 10 GM POWD.PACK PO SCH (09:30)
[2023-06-26 12:30] VITALS: BP 163/65; PULSE 63; RESP 18; TEMP 98.4; O2SAT 95
[2023-06-26 14:10] VITALS: BP 142/59; PULSE 62; RESP 18; TEMP 98; O2SAT 97
[2023-06-26 16:00] VITALS: BP 105/55; PULSE 64; RESP 18; TEMP 97.8; O2SAT 97
[2023-06-26] MEDS ORDERED: hydrALAZINE 25 MG TAB PO SCH (17:00)
[2023-06-27] MEDS ORDERED: NIFEdipine 90 MG TABER PO SCH (09:00)
== END 2023-06-26 17:40 | disposition home or self-care (01) | DRG 304 ==
LOC: MED 22:00 → MTU 06-22 02:42
PROVIDERS: ADMIT Student in an Organized Health Care Education/Training Program; ATTEND Student in an Organized Health Care Education/Training Program
PROC: 5A1D70Z Performance of Urinary Filtration, Intermittent, Less than 6 Hours Per Day (ICD-10-PCS; principal; 2023-06-22)
PROC: 5A1D70Z Performance of Urinary Filtration, Intermittent, Less than 6 Hours Per Day (ICD-10-PCS; 2023-06-25)
DX: I16.1 Hypertensive emergency (principal); E11.10 Type 2 diabetes mellitus with ketoacidosis without coma; N18.6 End stage renal disease; I50.33 Acute on chronic diastolic (congestive) heart failure; I24.89 Other forms of acute ischemic heart disease; R07.89 Other chest pain; I13.2 Hypertensive heart and chronic kidney disease with heart failure and with stage 5 chronic kidney disease, or end stage renal disease; E11.22 Type 2 diabetes mellitus with diabetic chronic kidney disease; E83.52 Hypercalcemia; I25.10 Atherosclerotic heart disease of native coronary artery without angina pectoris; D63.8 Anemia in other chronic diseases classified elsewhere; E21.1 Secondary hyperparathyroidism, not elsewhere classified; I25.2 Old myocardial infarction; Z99.2 Dependence on renal dialysis; Z79.899 Other long term (current) drug therapy; Z85.3 Personal history of malignant neoplasm of breast; Z95.1 Presence of aortocoronary bypass graft
CPT/HCPCS: 36415; 36600; 71045; 71250; 80053; 82009; 82550; 82803; 82948; 83605; 83735; 83880; 84100; 84484; 85025; 85610; 85730; 87040; 87081; 93005; 96374; 96375; 96376; 99285; J0360; J1815; J2270; J2405; J3010; J3490; J8597; P9046

== ENCOUNTER 2023-07-18 17:33 | Emergency (ER) | payer OTHER, MEDICAID ==
[~2023-07-18] VITALS: Ht 170.2 cm; Wt 81.6 kg
[2023-07-18 17:33] VITALS: BP 218/70; PULSE 69; RESP 19; TEMP 98.1; O2SAT 98
[~2023-07-18 17:33] MED LIST changes: -AMLO10TA PO; -CLON0.2T16 PO; -HYDR-3233 PO; +MECL-231 PO; +NIFE30TA36 PO; +NIFE30TE5 PO
[2023-07-18] MEDS ORDERED: HYDROcodone/APAP 10/325 MG 1 TAB TAB PO STA (18:12)
[2023-07-18 19:11] LABS: BASOPHILS % (AUTO) 0.8 % (0.0-2.0); EOSINOPHILS # (AUTO) 0.1 K/uL (0-0.4); EOSINOPHILS % (AUTO) 2.5 % (0.0-4.0); HEMATOCRIT 32.6 % (36-48); HEMOGLOBIN 10.8 g/dL (12.0-16.0); LYMPHOCYTES # (AUTO) 0.7 K/uL (2.5-16.5); LYMPHOCYTES % (AUTO) 15.9 % (20.5-51.1); MEAN CORPUSCULAR HEMOGLOBIN 31 pg (27-31); MEAN CORPUSCULAR HGB CONC 33 g/dL (33-37); MEAN CORPUSCULAR VOLUME 94.4 fL (80-94); MONOCYTES # (AUTO) 0.4 K/uL (0.8-1.0); MONOCYTES % (AUTO) 8.6 % (1.7-9.3); NEUTROPHILS # (AUTO) 3.1 K/uL (1.8-7.7); NEUTROPHILS % (AUTO) 72.2 % (42.2-75.2); PLATELET COUNT (AUTO) 134 K/uL (140-450); RED BLOOD CELL COUNT(AUTO) 3.45 MIL/uL (4.20-5.40); RED CELL DISTRIBUTION WIDTH 14.9 % (11.6-13.7); WHITE BLOOD COUNT (AUTO) 4.3 K/uL (4.8-10.8)
[2023-07-18 19:25] LABS: ANION GAP 12.2 (8-16); CALCIUM 8.1 mg/dL (8.5-10.1); CARBON DIOXIDE 34.2 mmol/L (21-32); POTASSIUM 3.4 mmol/L (3.5-5.1)
[2023-07-18 19:30] LABS: INR 1.07 (0.8-1.2); PARTIAL THROMBOPLASTIN TIME 27.9 secs (22-35.6); PROTHROMBIN TIME 11.2 secs (10.8-13.4)
[2023-07-18 19:34] LABS: ALANINE AMINOTRANSFERASE 51 U/L (12-78); ALBUMIN 3.2 g/dL (3.4-5.0); ALKALINE PHOSPHATASE 786 U/L (50-136); ASPARTATE AMINOTRANSFERASE 47 U/L (15-37); BILIRUBIN,DIRECT 0.1 mg/dL (0.0-0.3); TOTAL BILIRUBIN 0.2 mg/dL (0.0-1.0); TOTAL PROTEIN, SERUM 7.5 g/dL (6.4-8.2)
[2023-07-18] MEDS ORDERED: MORPHINE SULFATE 4 MG/ML SYR IVP ONE (20:10)
[2023-07-18] MEDS ORDERED: ASPIRIN 81 MG TAB.CHEW PO ONE (20:10)
[2023-07-18] MEDS ORDERED: LABETALOL 20 MG/4 ML VIAL IVP ONE (20:35)
[2023-07-18] MEDS ORDERED: hydrALAZINE 20 MG/ML VIAL IVP ONE (21:50)
[2023-07-18] MEDS ORDERED: NICARDIPINE HYDROCHLORIDE 25 MG in NACL 0.9% 240 ML IV ONE (21:55)
[2023-07-18] MEDS ORDERED: NICARDIPINE HYDROCHLORIDE 2.5 MG/ML VIAL IV ONE (22:19)
[2023-07-18] MEDS ORDERED: DESMOPRESSIN 4 MCG/ML AMP IV ONE (23:25)
[2023-07-19] MEDS ORDERED: NICARDIPINE HYDROCHLORIDE 25 MG in NACL 0.9% 240 ML IV ONE (03:30)
[2023-07-19] MEDS ORDERED: NICARDIPINE HYDROCHLORIDE 2.5 MG/ML VIAL IV ONE (03:36)
[2023-07-19 03:50] VITALS: BP 131/58; PULSE 64; RESP 30; TEMP 98.1; O2SAT 94
== END 2023-07-19 03:46 | disposition short-term general hospital (02) ==
LOC: MED 17:33
DX: I21.4 Non-ST elevation (NSTEMI) myocardial infarction (principal); E11.22 Type 2 diabetes mellitus with diabetic chronic kidney disease; I13.2 Hypertensive heart and chronic kidney disease with heart failure and with stage 5 chronic kidney disease, or end stage renal disease; I50.9 Heart failure, unspecified; N18.6 End stage renal disease; Z99.2 Dependence on renal dialysis; Z86.69 Personal history of other diseases of the nervous system and sense organs; Z98.890 Other specified postprocedural states; Z79.899 Other long term (current) drug therapy; Z79.4 Long term (current) use of insulin
CPT/HCPCS: 36415; 70450; 71045; 80048; 80076; 83880; 84484; 85025; 85610; 85730; 93005; 96365; 96366; 96368; 96375; 99291; J0360; J2270; J2597; J3490; J7030

== ENCOUNTER 2024-02-22 12:30 | Emergency (ER) | payer OTHER, MEDICAID ==
[~2024-02-22] VITALS: Ht 167.6 cm; Wt 40.8 kg
[2024-02-22 12:35] VITALS: BP 118/74; PULSE 82; RESP 18; TEMP 98; O2SAT 97
[2024-02-22 13:57] LABS: BASOPHILS % (AUTO) 0.7 % (0.0-2.0); EOSINOPHILS # (AUTO) 0.1 K/uL (0-0.4); EOSINOPHILS % (AUTO) 2.8 % (0.0-4.0); HEMATOCRIT 38.4 % (36-48); HEMOGLOBIN 12.1 g/dL (12.0-16.0); LYMPHOCYTES # (AUTO) 0.5 K/uL (2.5-16.5); LYMPHOCYTES % (AUTO) 11.8 % (20.5-51.1); MEAN CORPUSCULAR HEMOGLOBIN 29 pg (27-31); MEAN CORPUSCULAR HGB CONC 31 g/dL (33-37); MEAN CORPUSCULAR VOLUME 91.1 fL (80-94); MONOCYTES # (AUTO) 0.3 K/uL (0.8-1.0); MONOCYTES % (AUTO) 6.8 % (1.7-9.3); NEUTROPHILS # (AUTO) 3.6 K/uL (1.8-7.7); NEUTROPHILS % (AUTO) 77.9 % (42.2-75.2); PLATELET COUNT (AUTO) 142 K/uL (140-450); RED BLOOD CELL COUNT(AUTO) 4.22 MIL/uL (4.20-5.40); RED CELL DISTRIBUTION WIDTH 16.6 % (11.6-13.7); WHITE BLOOD COUNT (AUTO) 4.6 K/uL (4.8-10.8)
[2024-02-22 14:07] LABS: ANION GAP 13.2 (8-16); CREATININE 3.7 mg/dL (0.6-1.3); POTASSIUM 4.2 mmol/L (3.5-5.1)
[2024-02-22 14:12] LABS: INR 1.02 (0.8-1.2); PARTIAL THROMBOPLASTIN TIME 26.2 secs (22-35.6); PROTHROMBIN TIME 10.7 secs (10.8-13.4)
[2024-02-22] MEDS: ONDANSETRON 4 MG/2 ML VIAL IVP ONE (15:45)
[2024-02-22] MEDS: fentaNYL citrate 0.05 MG/ML VIAL IVP ONE (16:08)
[2024-02-22] MEDS: hydrALAZINE 20 MG/ML VIAL IVP ONE (16:40)
[2024-02-22] MEDS: INSULIN REGULAR, HUMAN 100 UNIT/ML VIAL SUBQ ONE (16:47)
[2024-02-22 17:15] VITALS: BP 141/66; PULSE 59; RESP 16; TEMP 97.3; O2SAT 100
[2024-02-22 17:46] LABS: FLU A ANTIGEN negative (NEGATIVE); FLU B ANTIGEN NEGATIVE (NEGATIVE)
== END 2024-02-22 17:15 | disposition short-term general hospital (02) ==
LOC: MED 12:30
DX: I61.3 Nontraumatic intracerebral hemorrhage in brain stem (principal); D72.819 Decreased white blood cell count, unspecified; R73.9 Hyperglycemia, unspecified; I12.0 Hypertensive chronic kidney disease with stage 5 chronic kidney disease or end stage renal disease; N18.6 End stage renal disease; Z20.822 Contact with and (suspected) exposure to COVID-19; Z99.2 Dependence on renal dialysis; Z85.3 Personal history of malignant neoplasm of breast; Z98.890 Other specified postprocedural states; Z86.69 Personal history of other diseases of the nervous system and sense organs; Z79.4 Long term (current) use of insulin; Z79.899 Other long term (current) drug therapy
CPT/HCPCS: 36415; 70450; 71045; 80048; 82948; 84484; 85025; 85610; 85730; 87426; 87804; 96372; 96374; 96375; 99291; 99292; J0360; J1815; J2405; J3010; Q0092